=== PATIENT | female | born 1985 | race African-American/Black ===

== ENCOUNTER 2016-08-12 11:14 | Emergency (ER) | payer OTHER ==
[~2016-08-12] VITALS: Ht 144.8 cm; Wt 71.7 kg
[2016-08-12] MEDS ORDERED: INDOMETHACIN 2525 MG PO (12:00)
[2016-08-12 12:01] LABS: HEMATOCRIT 41.9 % (37.0-47.0); HEMOGLOBIN 14.2 gm/dL (12.0-15.0); MCH 30.2 pg (26.0-34.0); MCHC 33.8 % (28.0-37.0); MCV 89.3 fL (80.0-100.0); PLATELET COUNT 241 thou/uL (150-400); RDW 13.2 % (10.5-14.5); WBC 4.3 thou/uL (4.0-11.0)
[2016-08-12 12:05] LABS: AMP/METHAMP Negative (Negative); BARBITURATES POSITIVE (Negative); BENZODIAZEPINES Negative (Negative); COCAINE Negative (Negative); METHADONE Negative (Negative); OPIATES Negative (Negative); PCP Negative (Negative); THC Negative (Negative)
[2016-08-12 12:05] LABS: MANUAL DIFF YES
[2016-08-12 12:17] LABS: CREATININE 0.9 mg/dL (0.6-1.3); POTASSIUM 3.7 mmol/L (3.5-5.1)
[2016-08-12 12:23] LABS: ABSOLUTE NEUTROPHILS 2.3 thou/uL (1.4-8.2); PLATELET ESTIMATE NORMAL; TOTAL CELL COUNT 100
[2016-08-12] MEDS ORDERED: ANTIVERT25 MG PO (13:40)
[2016-08-12 13:42] VITALS: BP 116/75
== END 2016-08-12 13:42 | disposition home or self-care (01) ==
LOC: ER 11:14
PROVIDERS: Emergency Medicine
DX: R20.9 Unspecified disturbances of skin sensation (principal)